=== PATIENT | male | born 1955 ===

== ENCOUNTER 2022-06-30 10:53 | Inpatient (IN) | payer OTHER ==
[~2022-06-30] VITALS: Ht 165.1 cm; Wt 65.8 kg
[2022-07-05] MEDS ORDERED: ADULT ASPIRIN81 MG (13:16)
[2022-07-06] MEDS ORDERED: FAMOTIDINE40 MG (08:16)
[2022-07-09] MEDS ORDERED: MIRALAX17 GM PO (12:37)
[2022-07-09] MEDS ORDERED: NEURONTIN300 MG PO (12:37)
[2022-07-09] MEDS ORDERED: ACETAMINOPHEN500 M2 PO (12:37)
== END 2022-07-09 14:57 | disposition home or self-care (01) | DRG 330 ==
LOC: SURG 07-05 07:00 → O/R 07-05 09:15 → SURH 07-05 09:15 → SURG 07-05 11:30 → SURH 07-06 13:20
PROVIDERS: ADMIT Surgery; ATTEND Surgery
PROC: 0DBP4ZZ Excision of Rectum, Percutaneous Endoscopic Approach (ICD-10-PCS; 2022-07-05)
PROC: 07BC4ZZ Excision of Pelvis Lymphatic, Percutaneous Endoscopic Approach (ICD-10-PCS; 2022-07-05)
PROC: 0DJD8ZZ Inspection of Lower Intestinal Tract, Via Natural or Artificial Opening Endoscopic (ICD-10-PCS; 2022-07-05)
PROC: 0DTN4ZZ Resection of Sigmoid Colon, Percutaneous Endoscopic Approach (ICD-10-PCS; principal; 2022-07-05 07:00)
DX: C20 Malignant neoplasm of rectum (principal); K62.5 Hemorrhage of anus and rectum; R59.0 Localized enlarged lymph nodes; Z20.822 Contact with and (suspected) exposure to COVID-19